=== PATIENT | female | born 1980 | race Caucasian/White ===

== ENCOUNTER 2017-10-19 19:03 | Emergency (ER) | payer MEDICAID ==
[~2017-10-19] VITALS: Ht 167.6 cm; Wt 111.4 kg
[~2017-10-19 19:03] MED LIST: NOCURR
[2017-10-19] MEDS ORDERED: LISI-662 PO (19:10)
[2017-10-19 19:21] LABS: APPEARANCE,URINE CLOUDY (CLEAR); BILIRUBIN,URINE NEGATIVE (NEGATIVE); GLUCOSE, URINE (UA) NEGATIVE (NEGATIVE); KETONES,URINE NEGATIVE (NEGATIVE); LEUKOCYTE ESTERASE ,URINE SMALL (NEGATIVE); NITRATE,URINE NEGATIVE (NEGATIVE); OCCULT BLOOD,URINE NEGATIVE (NEGATIVE); PROTEIN,URINE NEGATIVE (NEGATIVE)
[2017-10-19 19:46] LABS: BACTERIA,URINE None Seen /HPF (None Seen); RBC,URINE None Seen /HPF (0-2); SQUAMOUS EPITHELIAL CELL,UR Moderate /LPF (None Seen)
[2017-10-19] MEDS ORDERED: ACETAMINOPHEN 325 MG TABLET PO ONE (20:00)
[2017-10-19 20:13] LABS: BASOPHILS % (AUTO) 0.6 % (0.0-2.0); EOSINOPHILS % (AUTO) 5.6 % (1.0-6.0); HEMATOCRIT 42.7 % (36-46); LYMPHOCYTES # (AUTO) 3.5 K/uL (1.0-4.8); LYMPHOCYTES % (AUTO) 41.1 % (22.0-44.0); MEAN CORPUSCULAR HEMOGLOBIN 32.4 pg (26.0-34.0); MEAN CORPUSCULAR VOLUME 92 fL (80-100); MONOCYTES # (AUTO) 0.6 K/uL (0.1-1.0); MONOCYTES % (AUTO) 7.2 % (2.0-9.0); NEUTROPHILS # (AUTO) 3.9 K/uL (1.8-7.7); NEUTROPHILS % (AUTO) 45.5 % (40.0-70.0); PLATELET COUNT (AUTO) 297 K/uL (150-450); RED BLOOD CELL COUNT(AUTO) 4.62 MIL/uL (4.00-5.20); RED CELL DISTRIBUTION WIDTH 12.4 % (11.5-14.5)
[2017-10-19 20:23] LABS: ANION GAP 8 mmol/L (8-16); CALCIUM, TOTAL 9.1 mg/dL (8.8-10.5); CARBON DIOXIDE 26 mmol/L (22-29); CHLORIDE 103 mmol/L (98-107); CREATININE 0.82 mg/dL (0.60-1.30); GLOMERULAR FILTR. RATE CALC > 60 mL/min (>60); GLUCOSE,RANDOM 104 mg/dL (70-110); POTASSIUM 3.6 mmol/L (3.5-5.1); SODIUM SERUM 137 mmol/L (136-145); UREA NITROGEN, BLOOD 16 mg/dL (7-18)
[2017-10-19 20:25] LABS: INR 0.9 (0.9-1.1); PROTHROMBIN TIME 9.8 SEC (9.4-11.6)
[2017-10-19 20:30] LABS: ALANINE AMINOTRANSFERASE 30 U/L (12-78); ALBUMIN 3.9 g/dL (3.4-5.0); ALKALINE PHOSPHATASE 62 U/L (46-116); ASPARTATE AMINOTRANSFERASE 23 U/L (15-37); BILIRUBIN,TOTAL 0.3 mg/dL (0.1-1.0); CREATINE KINASE, TOTAL 72 U/L (26-192); TOTAL PROTEIN, SERUM 7.6 g/dL (6.4-8.2)
[2017-10-19 20:35] LABS: B-TYPE NATRIURETIC PEPTIDE < 5 pg/mL (0-100)
[2017-10-20 16:06] VITALS: BP 139/72
== END 2017-10-19 21:45 | disposition home or self-care (01) ==
LOC: EMS 19:04
DX: I10 Essential (primary) hypertension (principal); R51 Headache
CPT/HCPCS: 70450; 93005; 99285

== ENCOUNTER 2019-06-16 09:10 | Emergency (ER) | payer MEDICAID ==
[~2019-06-16] VITALS: Ht 167.6 cm; Wt 110.0 kg
[~2019-06-16 09:10] MED LIST changes: +LISI-662 PO; -NOCURR
[2019-06-16] MEDS ORDERED: ANTIBIOTIC PO (09:14)
[2019-06-16] MEDS ORDERED: HYDROGEN PEROXIDE 118 ML SOLUTION TP ONE (09:45)
[2019-06-16 12:00] VITALS: BP 133/85
== END 2019-06-16 12:19 | disposition home or self-care (01) ==
LOC: EMS 09:13
DX: H61.23 Impacted cerumen, bilateral (principal); H60.93 Unspecified otitis externa, bilateral; I10 Essential (primary) hypertension; Z79.899 Other long term (current) drug therapy
CPT/HCPCS: 69209

== ENCOUNTER 2021-10-21 11:08 | Emergency (ER) | payer MEDICAID ==
[~2021-10-21] VITALS: Ht 167.6 cm; Wt 120.0 kg
[~2021-10-21 11:08] MED LIST changes: +ANTIBIOTIC PO; -LISI-662 PO; +LISI-894 PO
[2021-10-21] MEDS ORDERED: KETOROLAC TROMETHAMINE 30 MG/ML VIAL IM ONE (12:00)
[2021-10-21] MEDS ORDERED: IBUP-2070 PO (12:32)
[2021-10-21 12:41] VITALS: BP 152/103
== END 2021-10-21 13:07 | disposition home or self-care (01) ==
LOC: EMS 11:11
DX: R20.2 Paresthesia of skin (principal); M25.511 Pain in right shoulder; M79.621 Pain in right upper arm; I10 Essential (primary) hypertension
CPT/HCPCS: 96372; 99283; J1885

== ENCOUNTER 2022-10-14 09:24 | Emergency (ER) | payer MEDICAID ==
[~2022-10-14] VITALS: Ht 172.7 cm; Wt 104.5 kg
[~2022-10-14 09:24] MED LIST changes: +IBUP-1492 PO
[2022-10-14] MEDS ORDERED: PROPARACAINE HCL 0.5% 15 ML OPHTHALMIC SOLUTION OD ONE (11:15)
[2022-10-14] MEDS ORDERED: FLUORESCEIN SODIUM 1 MG STRIP OD ONE (11:15)
[2022-10-14] MEDS ORDERED: CLIN-26 PO (11:38)
[2022-10-14] MEDS ORDERED: SULF15DR26 OD (11:38)
[2022-10-14] MEDS ORDERED: CLINDAMYCIN HCL 150 MG CAPSULE PO ONE (11:45)
[2022-10-14] MEDS ORDERED: SULFACETAMIDE SODIUM 10% 15 ML OPHTHALMIC SOLUTION OD ONE (11:45)
[2022-10-14 12:43] VITALS: BP 140/99
== END 2022-10-14 12:45 | disposition home or self-care (01) ==
LOC: EMS 09:33
DX: S05.01XA Injury of conjunctiva and corneal abrasion without foreign body, right eye, initial encounter (principal); L03.213 Periorbital cellulitis; H10.9 Unspecified conjunctivitis; I10 Essential (primary) hypertension; Z98.890 Other specified postprocedural states; X58.XXXA Exposure to other specified factors, initial encounter; Y93.89 Activity, other specified; Y92.89 Other specified places as the place of occurrence of the external cause; Y99.8 Other external cause status
CPT/HCPCS: 99283

== ENCOUNTER 2024-01-04 18:36 | Emergency (ER) | payer MEDICAID, OTHER ==
[~2024-01-04] VITALS: Ht 167.6 cm; Wt 129.1 kg
[~2024-01-04 18:36] MED LIST changes: +CLIN-26 PO; +SULF15DR26 OD
[2024-01-04 18:42] VITALS: TEMP 98.1
[2024-01-04] MEDS ORDERED: ENAL2.5T71 PO (18:46)
[2024-01-04] MEDS: SODIUM CHLORIDE 0.9% 1,000 ML IV ONE (19:01)
[2024-01-04 19:14] LABS: BASOPHILS % (AUTO) 0.7 % (0.0-2.0); EOSINOPHILS % (AUTO) 4.9 % (1.0-6.0); HEMATOCRIT 40.7 % (36-46); HEMOGLOBIN 13.8 g/dL (12.0-16.0); LYMPHOCYTES # (AUTO) 3.3 K/uL (1.0-4.8); LYMPHOCYTES % (AUTO) 32.6 % (22.0-44.0); MEAN CORPUSCULAR HEMOGLOBIN 32.3 pg (26.0-34.0); MEAN CORPUSCULAR VOLUME 95 fL (80-100); MONOCYTES # (AUTO) 0.8 K/uL (0.1-1.0); MONOCYTES % (AUTO) 7.5 % (2.0-9.0); NEUTROPHILS # (AUTO) 5.5 K/uL (1.8-7.7); NEUTROPHILS % (AUTO) 54.3 % (40.0-70.0); PLATELET COUNT (AUTO) 311 K/uL (150-450); RED BLOOD CELL COUNT(AUTO) 4.28 MIL/uL (4.00-5.20); RED CELL DISTRIBUTION WIDTH 12.3 % (11.5-14.5); WHITE BLOOD COUNT (AUTO) 10.2 K/uL (4.5-11.0)
[2024-01-04 19:23] LABS: CALCIUM, TOTAL 9.3 mg/dL (8.8-10.5); CREATININE 1.07 mg/dL (0.60-1.30)
[2024-01-04 19:34] LABS: ALBUMIN 3.6 g/dL (3.4-5.0); BILIRUBIN,TOTAL 0.3 mg/dL (0.1-1.0); TOTAL PROTEIN, SERUM 7.3 g/dL (6.4-8.2)
[2024-01-04] MEDS: HYDROmorphone HCL 2 MG/ML SYRINGE IVP ONE (20:33)
[2024-01-04] MEDS ORDERED: MEDR5TAB5 PO (22:40)
[2024-01-04 23:36] VITALS: BP 149/102; PULSE 85; RESP 16
[2024-01-05] MEDS ORDERED: ACET325T51 PO (16:58)
== END 2024-01-04 23:56 | disposition home or self-care (01) ==
LOC: EMS 18:41
DX: N93.8 Other specified abnormal uterine and vaginal bleeding (principal); I10 Essential (primary) hypertension
CPT/HCPCS: 74018; 74176; 76830; 76856; 80053; 84702; 85025; 86850; 86900; 86901; 96361; 96374; 99285; J1170; J7030; 36415-L1; 36415-TC